=== PATIENT | male | born 1960 | race Caucasian/White ===

== ENCOUNTER 2020-09-02 06:56 | Day surgery (SDC) | payer OTHER, SELFPAY ==
[~2020-09-02] VITALS: Ht 170.2 cm; Wt 68.9 kg
[~2020-09-02 06:56] MED LIST: ACET-8386 PO; AMYL1TAB PO; LORA0.5T6 PO; OMEP20TC PO
[2020-09-02] MEDS ORDERED: LIDOCAINE 2% 100 MG/5 ML UJET TP ONE (09:11)
[2020-09-02] MEDS ORDERED: fentaNYL citrate 0.05 MG/ML VIAL ONE (09:11)
[2020-09-02] MEDS ORDERED: fentaNYL citrate 0.05 MG/ML VIAL IVP ONE (11:45)
== END 2020-09-02 10:00 | disposition home or self-care (01) ==
LOC: MDS 06:56 → MMU 06:57 → MDS 10:00
PROVIDERS: ATTEND Internal Medicine Gastroenterology
DX: Z12.11 Encounter for screening for malignant neoplasm of colon (principal); Z86.010 Personal history of colon polyps; Z80.0 Family history of malignant neoplasm of digestive organs; Z79.899 Other long term (current) drug therapy; Z20.822 Contact with and (suspected) exposure to COVID-19
CPT/HCPCS: 45378; 87426; J3010; U0003